=== PATIENT | male | born 1960 | race Caucasian/White ===

== ENCOUNTER 2018-11-01 20:45 | Inpatient (IN) | payer OTHER ==
[2018-11-02 00:39] LABS: Basophils # (A) 0.1 k/uL (0-0.2); Basophils % (A) 0 %; Eosinophils # (A) 0.3 k/uL (0-0.7); Eosinophils % (A) 1 %; Lymphocytes # (A) 1.6 k/uL (1.0-4.8); Lymphocytes % (A) 8 %; MCH 29.5 pg (25.0-35.0); MCV 92.2 fL (80.0-100.0); Mean Platelet Volume 7.1; Monocytes # (A) 1.1 k/uL (0-1.0); Monocytes % (A) 5 %; Neutrophils # (A) 16.6 k/uL (1.3-7.7); Neutrophils % (A) 84 %; Platelet Count 330 k/uL (150-450); RBC 5.43 m/uL (4.30-5.90); RDW 13.2 % (11.5-15.5); WBC 19.9 k/uL (3.8-10.6)
[2018-11-02 00:47] LABS: Amorphous Sediment,Urine Rare /hpf; Appearance,Urine Cloudy (Clear); Bilirubin,Urine Negative (Negative); Blood,Urine Negative (Negative); Color,Urine Yellow; Glucose,Urine (UA) Trace (Negative); Ketones,Urine Negative (Negative); Leukocyte Esterase,Urine Negative (Negative); Nitrite,Urine Negative (Negative); Protein,Urine Trace (Negative); Urobilinogen,Urine <2.0 mg/dL (<2.0)
[2018-11-02 00:53] LABS: ALT 45 U/L (21-72); AST 37 U/L (17-59); Albumin 4.7 g/dL (3.5-5.0); Alkaline Phosphatase 52 U/L (38-126); Amylase 74 U/L (30-110); Anion Gap 11 mmol/L; Blood Urea Nitrogen 21 mg/dL (9-20); Calcium 10.2 mg/dL (8.4-10.2); Carbon Dioxide 25 mmol/L (22-30); Chloride 107 mmol/L (98-107); Glucose 124 mg/dL (74-99); Lipase 118 U/L (23-300); Potassium 4.5 mmol/L (3.5-5.1); Sodium 143 mmol/L (137-145); Total Bilirubin 0.6 mg/dL (0.2-1.3)
--- NOTE | 2018-11-02 01:04 | XR ---
EXAMINATION TYPE: XR KUB DATE OF EXAM: 11/02/2018 COMPARISON: NONE HISTORY: Cramping abdominal pain TECHNIQUE: 2 views upright FINDINGS: There is no sign of intestinal obstruction or pneumoperitoneum. Fecal pattern is normal. Th ere is no sign of a mass. Lung bases are clear. There are no pathologic calcifications over the kidne ys. Bony structures are intact. There is no evidence of a mass. IMPRESSION: Nonacute abdomen.
[2018-11-02] MEDS ORDERED: SODIUM CHLORIDE 0.9% 1,000 ML IV ONE (01:07)
--- NOTE | 2018-11-02 01:10 | ED ---
Abdominal Pain HPI - General Chief Complaint: Abdominal Pain Stated Complaint: Abd pain, and dental issues Time Seen by Provider: 11/02/18 00:24 Source: patient Mode of arrival: ambulatory Limitations: no limitations - History of Present Illness Initial Comments: Weight is a 57-year-old male who presents the emergency department today for evaluation of abdominal pain. Patient reports that around 5 PM he developed abdominal pain in the periumbilical region. He reports that throughout the evening the pain has spread throughout his entire abdomen is associated with nausea and anorexia. No diarrhea or constipation. Patient reports he has a history of ulcers and has had bleeding in the past which , he still is his gallbladder and appendix. Patient reports pain is a dull cramping with occasional episodes of severe stabbing pain. In addition patient also notes that he cracked his left incisor on October 01, he has follow-up with dentistry scheduled for November 08 however he has developed a small dental abscess surrounding this tooth MD Complaint: abdominal pain - Related Data Home Medications Medication Instructions Recorded Confirmed No Known Home Medications 07/08/16 07/08/16 Allergies Allergy/AdvReac Type Severity Reaction Status Date / Time Penicillins Allergy Rash/Hives Verified 11/01/18 21:02 Review of Systems ROS Statement: Those systems with pertinent positive or pertinent negative responses have been documented in the HPI. ROS Other: All systems not noted in ROS Statement are negative. Past Medical History Past Medical History: GERD/Reflux History of Any Multi-Drug Resistant Organisms: None Reported Past Surgical History: Orthopedic Surgery Past Psychological History: No Psychological Hx Reported Smoking Status: Former smoker Past Alcohol Use History: Occasional Past Drug Use History: None Reported General Exam - General Exam Comments Initial Comments: Physical Exam GENERAL: Patient is well-developed and well-nourished. Flushed skin, febrile HENT: Normocephalic, Atraumatic. EYES: PERRL, EOMI PULMONARY: Unlabored respirations. No audible rales rhonchi or wheezing was noted. CARDIOVASCULAR: There is a regular rate and rhythm without any murmurs gallops or rubs. ABDOMEN: Soft, diffuse tenderness, non-peritoneal SKIN: Flushed, moist : Deferred NEUROLOGIC: Patient is alert and oriented x3. Moving all extremities spontaneously MUSCULOSKELETAL: Normal extremities with adequate strength and full range of motion. No lower extremity swelling or edema. No calf tenderness. PSYCHIATRIC: Normal psychiatric evaluation. Limitations: no limitations Limitations: no limitations Course Vital Signs 11/01/18 11/02/18 21:00 00:27 Temperature 98.6 F 98.7 F Pulse Rate 89 103 H Respiratory 20 16 Rate Blood Pressure 127/90 O2 Sat by Pulse 98 97 Oximetry Medical Decision Making - Medical Decision Making Patient was seen and evaluated history is obtained from the patient Labs and imaging were ordered Labs reveal severe leukocytosis with neutrophilia CT of the abdomen was ordered CT of the abdomen reveals some small bowel inflammation with free air in the mesentery surrounding the jejunum. These results were discussed with the radiologist Dr. Leslie. Results were discussed with the patient, I again offered the patient IV narcotics for pain management, he declined stating that as long as no one touches his stomach or moves him he has not been too bad of pain Patient care was discussed with surgeon drill press operator numerical control Dr. Mondragon, she recommends antibiotics, IV fluid resuscitation, nothing by mouth status and admission to medicine Patient care was discussed with Dr. Foster who accepts the admission with a consult to surgery next Considering the patient's ALLERGY to penicillin Levaquin and Flagyl were ordered for coverage of intra-abdominal pathogens. - Lab Data Result diagrams: 11/02/18 00:31 11/02/18 00:31 Lab Results 11/02/18 11/02/18 11/02/18 Range/Units 00:31 00:31 00:31 WBC 19.9 H (3.8-10.6) k/uL RBC 5.43 (4.30-5.90) m/uL Hgb 16.0 (13.0-17.5) gm/dL Hct 50.0 (39.0-53.0) % MCV 92.2 (80.0-100.0) fL MCH 29.5 (25.0-35.0) pg MCHC 32.0 (31.0-37.0) g/dL RDW 13.2 (11.5-15.5) % Plt Count 330 (150-450) k/uL Neutrophils % 84 % Lymphocytes % 8 % Monocytes % 5 % Eosinophils % 1 % Basophils % 0 % Neutrophils # 16.6 H (1.3-7.7) k/uL Lymphocytes # 1.6 (1.0-4.8) k/uL Monocytes # 1.1 H (0-1.0) k/uL Eosinophils # 0.3 (0-0.7) k/uL Basophils # 0.1 (0-0.2) k/uL Sodium 143 (137-145) mmol/L Potassium 4.5 (3.5-5.1) mmol/L Chloride 107 (98-107) mmol/L Carbon Dioxide 25 (22-30) mmol/L Anion Gap 11 mmol/L BUN 21 H (9-20) mg/dL Creatinine 0.87 (0.66-1.25) mg/dL Est GFR (CKD-EPI)AfAm >90 (>60 ml/min/1.73 sqM) Est GFR (CKD-EPI)NonAf >90 (>60 ml/min/1.73 sqM) Glucose 124 H (74-99) mg/dL Calcium 10.2 (8.4-10.2) mg/dL Total Bilirubin 0.6 (0.2-1.3) mg/dL AST 37 (17-59) U/L ALT 45 (21-72) U/L Alkaline Phosphatase 52 (38-126) U/L Total Protein 8.0 (6.3-8.2) g/dL Albumin 4.7 (3.5-5.0) g/dL Amylase 74 (30-110) U/L Lipase 118 (23-300) U/L Urine Color Yellow Urine Appearance Cloudy (Clear) Urine pH 8.0 (5.0-8.0) Ur Specific [place] 1.020 (1.001-1.035) Urine Protein Trace H (Negative) Urine Glucose (UA) Trace H (Negative) Urine Ketones Negative (Negative) Urine Blood Negative (Negative) Urine Nitrite Negative (Negative) Urine Bilirubin Negative (Negative) Urine Urobilinogen <2.0 (<2.0) mg/dL Ur Leukocyte Esterase Negative (Negative) Amorphous Sediment Rare H (None) /hpf Disposition Clinical Impression: Small bowel perforation Disposition: ADMITTED IP TO THIS HOSP Is patient prescribed a controlled substance at d/c from ED?: No Referrals: Marisol Carbone DO [Primary Care Provider] - 1-2 days
[2018-11-02] MEDS ORDERED: LEVOFLOXACIN 500MG-D5W PMX 500 MG in DEXTROSE/WATER 1 100ML.BAG IVPB STA (01:51)
[2018-11-02] MEDS ORDERED: metroNIDAZOLE-NS PMX 500 MG in SALINE 1 100ML.BAG IVPB STA (01:51)
--- NOTE | 2018-11-02 01:52 | CT ---
EXAMINATION TYPE: CT abdomen pelvis w con DATE OF EXAM: 11/02/2018 COMPARISON: None HISTORY: Abd pain CT DLP: 787.20 mGycm Automated exposure control for dose reduction was used. TECHNIQUE: Helical acquisition of images was performed from the lung bases through the pelvis. CONTRAST: Performed without Oral Contrast and with IV Contrast, patient injected with 100 mL of Isovue 300. FINDINGS: There is mild subsegmental atelectasis at the lung bases. There is small hiatal hernia. Heart size is normal. There is no pericardial effusion. Liver spleen pancreas gallbladder appear normal. Bile duct s are not dilated. There is no adrenal mass. Kidneys show satisfactory contrast opacification. There is 2 mm calculus lateral left kidney. There is 1 cm cortical cyst posterior right kidney. There is no hydronephrosis. The ureters are not dilated. There is no retroperitoneal adenopathy. Bladder distends smoothly. There is no inguinal hernia. Appendix is not definitely seen. There is no sign of appendicitis. There is a 6 x 3 cm irregular collection of air in the small bowel mesentery on the left side best se en on coronal image 35. There is also small air bubbles in the anterior peritoneal cavity. There is m ild thickening of the jejunum wall. There is some tethering of small bowel loops at the area of the m esenteric air. There is mild small bowel mesenteric edema at the area of free air. There is large 1.5 cm diverticulum of the proximal sigmoid colon. I see no sign of diverticulitis. There is tiny amount of free fluid in the pelvis. IMPRESSION: THERE IS PNEUMOPERITONEUM AND SOME FREE AIR ALSO IN THE SMALL BOWEL MESENTERY. THERE IS MILD JEJUNAL WALL THICKENING. THIS COULD RELATE TO PERFORATED ENTERITIS. APPENDIX NOT SEEN. NO EVIDENCE OF APPENDICITIS. This exam was discussed with the ER physician at 1:50 AM.
[2018-11-02] MEDS ORDERED: NALOXONE 0.4 MG/ML 1 ML VIAL IV PRN (01:55)
[2018-11-02] MEDS ORDERED: ONDANSETRON 4 MG/2 ML VIAL IVP PRN (01:55)
[2018-11-02] MEDS: MORPHINE SULFATE 4 MG/ML SYRINGE IV PRN ×5 (04:00→23:08)
[2018-11-02 07:46] VITALS: BMI 26.6
--- NOTE | 2018-11-02 12:04 | P.HPIM ---
History of Present Illness H&P Date: 11/02/18 Chief Complaint: Abdominal pain This is a 57-year-old male, patient of Dr. Carbone. He has a known past medical history of GERD and bleeding stomach ulcers over 20 years ago that required cauterization. Patient also has a cracked left incisor that has developed a small dental abscess. He is scheduled to see his dentist on November 08. He was currently not on any antibiotics for the tooth. Patient reports around 5:00 yesterday afternoon he started having severe sharp abdominal pains across the center of the abdomen. I'll pain continued to worsen. And he came into the emergency room for further evaluation and treatment. White count elevated at 19.9. Computed tomography scan of the abdomen and pelvis shows there is no pneumoperitoneum and some free air in the small bowel mesentery. There is a mild jejunal wall thickening. This could relate to a perforated enteritis. No evidence of appendicitis. Surgical service has been placed on consult. Patient started on Levaquin and Flagyl in the ER. Also is receiving morphine for pain control. Patient reports that he is been having regular bowel movements. No diarrhea or constipation. Denies any nausea or vomiting. He does admit to having some chills and sweats. But no fever reported. Denies any burning with urination. Denies any chest pain or shortness of breath. Last colonoscopy was over 2 years ago. Review of Systems Please refer to HPI otherwise unremarkable Past Medical History Past Medical History: GERD/Reflux Additional Past Medical History / Comment(s): gastric ulcers History of Any Multi-Drug Resistant Organisms: None Reported Past Surgical History: Orthopedic Surgery Past Psychological History: No Psychological Hx Reported Smoking Status: Former smoker Past Alcohol Use History: Occasional Past Drug Use History: None Reported - Past Family History Mother Family Medical History: Diabetes Mellitus Sister(s) Family Medical History: Diabetes Mellitus Medications and Allergies Home Medications Medication Instructions Recorded Confirmed Type Multivitamins, Thera [Multivitamin 1 tab PO DAILY 11/02/18 11/02/18 History (formulary)] Allergies Allergy/AdvReac Type Severity Reaction Status Date / Time Penicillins Allergy Rash/Hives Verified 11/02/18 08:04 Physical Exam Vitals: Vital Signs Temp Pulse Pulse Resp BP BP Pulse Ox 11/02/18 07:34 98.4 F 99 18 107/74 95 11/02/18 07:29 98.1 F 96 18 107/74 94 L 11/02/18 07:03 98.6 F 11/02/18 03:00 96 16 117/73 95 11/02/18 02:25 98.6 F 96 15 117/71 96 11/02/18 00:27 98.7 F 103 H 16 97 11/01/18 21:00 98.6 F 89 20 127/90 98 Intake and Output 11/01/18 11/02/18 11/02/18 22:59 06:59 14:59 Other: Weight 79.379 kg 79.379 kg Head normocephalic Neck supple Lungs clear to auscultation bilaterally no wheezing or crackles Heart regular rate and rhythm S1-S2, no rub or gallop Abdomen is distended diffuse abdominal tenderness. Hypoactive bowel sounds Extremities no edema Neuro alert and orientated to 3 Results CBC & Chem 7: 11/02/18 00:31 11/02/18 00:31 Labs: Abnormal Lab Results - Last 24 Hours (Table) 11/02/18 11/02/18 11/02/18 Range/Units 00:31 00:31 00:31 WBC 19.9 H (3.8-10.6) k/uL Neutrophils # 16.6 H (1.3-7.7) k/uL Monocytes # 1.1 H (0-1.0) k/uL BUN 21 H (9-20) mg/dL Glucose 124 H (74-99) mg/dL Urine Protein Trace H (Negative) Urine Glucose (UA) Trace H (Negative) Amorphous Sediment Rare H (None) /hpf Assessment and Plan Assessment: 1. Abdominal pain with computed tomography scan showing pneumoperitoneum and free air in the small bowel mesentery. Surgical service on consult. awaiting their recommendations. Continue Levaquin, Flagyl IV fluids. Continue morphine as needed for pain control. Patient is currently nothing by mouth. 2. Left incisor dental abscess: Continue his current antibiotics. Patient scheduled to follow-up with dentist next week on November 08 3. History of GERD 4. History of bleeding peptic ulcers requiring cauterization about 20 years GI prophylaxis Protonix and DVT prophylaxis SCDs Time with Patient: Greater than 30 (Greater than 50% of the total time spent in counseling and coordination of care.I performed an examination of the patient and discussed their management with the physician Fire Pot Operator. I have reviewed the Physician Fire Pot Operator's notes and agree with the documented findings and plan of care)
[2018-11-02] MEDS ORDERED: SODIUM CHLORIDE 0.9% 2,000 ML IV ONE (12:29)
--- NOTE | 2018-11-02 12:29 | P.GSCN ---
History of Present Illness Consult date: 11/02/18 History of present illness: Patient seen and evaluated. Will repeat XR as patient reports feeling better. ADDENDUM: Repeat abdominal x-ray now confirms free air, we'll proceed with exploratory laparotomy possible bowel resection and possible ostomy Past Medical History Past Medical History: GERD/Reflux Additional Past Medical History / Comment(s): gastric ulcers History of Any Multi-Drug Resistant Organisms: None Reported Past Surgical History: Orthopedic Surgery Past Psychological History: No Psychological Hx Reported Smoking Status: Former smoker Past Alcohol Use History: Occasional Past Drug Use History: None Reported - Past Family History Mother Family Medical History: Diabetes Mellitus Sister(s) Family Medical History: Diabetes Mellitus Medications and Allergies Home Medications Medication Instructions Recorded Confirmed Type Multivitamins, Thera [Multivitamin 1 tab PO DAILY 11/02/18 11/02/18 History (formulary)] Allergies Allergy/AdvReac Type Severity Reaction Status Date / Time Penicillins Allergy Rash/Hives Verified 11/02/18 08:04 Surgical - Exam Vital Signs Temp Pulse Resp BP Pulse Ox 98.6 F 89 20 127/90 98 11/01/18 21:00 11/01/18 21:00 11/01/18 21:00 11/01/18 21:00 11/01/18 21:00 Results - Labs 11/02/18 00:31 11/02/18 00:31 Abnormal Lab Results - Last 24 Hours (Table) 11/02/18 11/02/18 11/02/18 Range/Units 00:31 00:31 00:31 WBC 19.9 H (3.8-10.6) k/uL Neutrophils # 16.6 H (1.3-7.7) k/uL Monocytes # 1.1 H (0-1.0) k/uL BUN 21 H (9-20) mg/dL Glucose 124 H (74-99) mg/dL Urine Protein Trace H (Negative) Urine Glucose (UA) Trace H (Negative) Amorphous Sediment Rare H (None) /hpf Diabetes panel 11/02/18 Range/Units 00:31 Sodium 143 (137-145) mmol/L Potassium 4.5 (3.5-5.1) mmol/L Chloride 107 (98-107) mmol/L Carbon Dioxide 25 (22-30) mmol/L BUN 21 H (9-20) mg/dL Creatinine 0.87 (0.66-1.25) mg/dL Glucose 124 H (74-99) mg/dL Calcium 10.2 (8.4-10.2) mg/dL AST 37 (17-59) U/L ALT 45 (21-72) U/L Alkaline Phosphatase 52 (38-126) U/L Total Protein 8.0 (6.3-8.2) g/dL Albumin 4.7 (3.5-5.0) g/dL Calcium panel 11/02/18 Range/Units 00:31 Calcium 10.2 (8.4-10.2) mg/dL Albumin 4.7 (3.5-5.0) g/dL Pituitary panel 11/02/18 Range/Units 00:31 Sodium 143 (137-145) mmol/L Potassium 4.5 (3.5-5.1) mmol/L Chloride 107 (98-107) mmol/L Carbon Dioxide 25 (22-30) mmol/L BUN 21 H (9-20) mg/dL Creatinine 0.87 (0.66-1.25) mg/dL Glucose 124 H (74-99) mg/dL Calcium 10.2 (8.4-10.2) mg/dL Adrenal panel 11/02/18 Range/Units 00:31 Sodium 143 (137-145) mmol/L Potassium 4.5 (3.5-5.1) mmol/L Chloride 107 (98-107) mmol/L Carbon Dioxide 25 (22-30) mmol/L BUN 21 H (9-20) mg/dL Creatinine 0.87 (0.66-1.25) mg/dL Glucose 124 H (74-99) mg/dL Calcium 10.2 (8.4-10.2) mg/dL Total Bilirubin 0.6 (0.2-1.3) mg/dL AST 37 (17-59) U/L ALT 45 (21-72) U/L Alkaline Phosphatase 52 (38-126) U/L Total Protein 8.0 (6.3-8.2) g/dL Albumin 4.7 (3.5-5.0) g/dL
--- NOTE | 2018-11-02 12:54 | XR ---
EXAMINATION TYPE: XR abdomen acute w cxr DATE OF EXAM: 11/02/2018 COMPARISON: 11/02/2008 HISTORY: Pain TECHNIQUE: Supine, upright, and left side down lateral decubitus views of the abdomen are obtained. FINDINGS: Metallic screw overlying the left upper chest. No sizable pneumothorax. Subsegmental consol idation along the bilateral lung bases with tiny effusions. No overt failure. Bowel gas pattern nonspecific. Findings suspicious for a small amount of free air. Arthropathy of the hips noted. Contrast within the bladder noted. IMPRESSION: 1. Findings suspicious for small amount of free intra-abdominal air. 2. Right basilar atelectasis or infiltrate.
[2018-11-02] MEDS: PANTOPRAZOLE 40 MG/10 ML VIAL IVP SCH (13:28)
[2018-11-02] MEDS: metroNIDAZOLE-NS PMX 500 MG in SALINE 1 100ML.BAG IVPB SCH ×2 (15:01→23:09)
--- NOTE | 2018-11-02 15:08 | P.PN ---
Progress Note - Text Progress Note Date: 11/02/18 Patient re-evaluated. Findings of AXR described to and patient. He reports feeling much better since admission including from my initial assessment. Patient was initially described surgery including exploratory laparotomy possible bowel resection and ostomy creation. Patient elected to decline surgery , "I feel so much better." He opted to be observed. He is aware that any decline in his clinical status may warrant surgery in the future.
[2018-11-03] MEDS: LEVOFLOXACIN 500MG-D5W PMX 500 MG in DEXTROSE/WATER 1 100ML.BAG IVPB SCH (07:51)
[2018-11-03] MEDS: PANTOPRAZOLE 40 MG/10 ML VIAL IVP SCH (08:08)
[2018-11-03] MEDS: metroNIDAZOLE-NS PMX 500 MG in SALINE 1 100ML.BAG IVPB SCH ×3 (08:58→23:56)
[2018-11-03] MEDS: ACETAMINOPHEN TAB 325 MG TAB PO PRN ×2 (08:58→21:14)
[2018-11-03] MEDS: IOPAMIDOL-300 CONTRAST 30 ML VIAL (ORAL USE) PO PRN ×2 (09:37→10:31)
[2018-11-03 09:47] LABS: Basophils % (A) 0 %; Eosinophils # (A) 0.1 k/uL (0-0.7); Eosinophils % (A) 1 %; HCT 42.7 % (39.0-53.0); HGB 14.1 gm/dL (13.0-17.5); Lymphocytes # (A) 1.5 k/uL (1.0-4.8); Lymphocytes % (A) 8 %; MCH 30.8 pg (25.0-35.0); MCV 93.3 fL (80.0-100.0); Mean Platelet Volume 7.7; Monocytes # (A) 1.4 k/uL (0-1.0); Monocytes % (A) 8 %; Neutrophils # (A) 14.3 k/uL (1.3-7.7); Neutrophils % (A) 81 %; Platelet Count 226 k/uL (150-450); RBC 4.58 m/uL (4.30-5.90); RDW 13.1 % (11.5-15.5); WBC 17.6 k/uL (3.8-10.6)
[2018-11-03 09:59] LABS: ALT 31 U/L (21-72); AST 19 U/L (17-59); Albumin 3.5 g/dL (3.5-5.0); Alkaline Phosphatase 45 U/L (38-126); Anion Gap 10 mmol/L; Blood Urea Nitrogen 10 mg/dL (9-20); Calcium 9.2 mg/dL (8.4-10.2); Carbon Dioxide 21 mmol/L (22-30); Chloride 104 mmol/L (98-107); Glucose 106 mg/dL (74-99); Potassium 4.1 mmol/L (3.5-5.1); Sodium 135 mmol/L (137-145); Total Bilirubin 1.4 mg/dL (0.2-1.3); Total Protein 6.3 g/dL (6.3-8.2)
--- NOTE | 2018-11-03 12:02 | P.PN ---
Subjective Progress Note Date: 11/03/18 This is a 57-year-old male, patient of Dr. Carbone. He has a known past medical history of GERD and bleeding stomach ulcers over 20 years ago that required cauterization. Patient also has a cracked left incisor that has developed a small dental abscess. He is scheduled to see his dentist on November 08. He was currently not on any antibiotics for the tooth. Patient reports around 5:00 yesterday afternoon he started having severe sharp abdominal pains across the center of the abdomen. I'll pain continued to worsen. And he came into the emergency room for further evaluation and treatment. White count elevated at 19.9. Computed tomography scan of the abdomen and pelvis shows there is no pneumoperitoneum and some free air in the small bowel mesentery. There is a mild jejunal wall thickening. This could relate to a perforated enteritis. No evidence of appendicitis. Surgical service has been placed on consult. Patient started on Levaquin and Flagyl in the ER. Also is receiving morphine for pain control. Patient reports that he is been having regular bowel movements. No diarrhea or constipation. Denies any nausea or vomiting. He does admit to having some chills and sweats. But no fever reported. Denies any burning with urination. Denies any chest pain or shortness of breath. Last colonoscopy was over 2 years ago. 11/03/2018 patient seen by surgical service yesterday. Abdominal x-ray also showing free air. Initially it was planned to have patient undergo an exploratory laparotomy with possible bowel resection and ostomy creation. Per surgical service patient elected to decline surgery stating that "I feel so much better". Patient has not required any pain medication this morning. And is scheduled for a computed tomography scan of the abdomen and pelvis this morning for further evaluation of bowel perforation. Patient's abdomen is still distended. Denies any nausea or vomiting. Does admit to having some chest pressure earlier this morning. EKG and troponin have been ordered. Patient is passing gas no bowel movement. She's been followed closely by surgical service. Patient did have a low-grade temp of 100.5 this morning. Heart rate 107 white count has dropped from 19.9-17.6 Objective - Vital Signs Vital signs: Vital Signs Temp 98.5 F 11/03/18 08:00 Pulse 107 H 01/04/19 05:45 Resp 20 11/03/18 05:45 BP 120/82 11/03/18 05:45 Pulse Ox 94 L 11/03/18 05:45 Intake & Output 11/02/18 11/03/18 11/03/18 18:59 06:59 18:59 Intake Total 0 Balance 0 Weight 79.379 kg Intake: Oral 0 Other: # Voids 1 1 - Exam Head normocephalic Neck supple Lungs clear to auscultation bilaterally no wheezing or crackles Heart regular rate and rhythm S1-S2, no rub or gallop Abdomen is distended hypoactive bowel sounds diffuse tenderness Extremities no edema Neuro alert and orientated to 3 - Labs CBC & Chem 7: 11/03/18 08:51 11/03/18 08:51 Labs: Abnormal Lab Results - Last 24 Hours (Table) 11/03/18 11/03/18 Range/Units 08:51 08:51 WBC 17.6 H (3.8-10.6) k/uL Neutrophils # 14.3 H (1.3-7.7) k/uL Monocytes # 1.4 H (0-1.0) k/uL Sodium 135 L (137-145) mmol/L Carbon Dioxide 21 L (22-30) mmol/L Glucose 106 H (74-99) mg/dL Total Bilirubin 1.4 H (0.2-1.3) mg/dL Assessment and Plan Assessment: 1. Abdominal pain with computed tomography scan showing pneumoperitoneum and free air in the small bowel mesentery. Continue Levaquin and Flagyl. Patient is scheduled for a repeat computed tomography scan of the abdomen and pelvis. We'll await further surgical recommendations. Yesterday patient had declined surgical intervention 2. Left incisor dental abscess: Continue his current antibiotics. Patient scheduled to follow-up with dentist next week on November 08 3. History of GERD 4. History of bleeding peptic ulcers requiring cauterization about 20 years 5. Chest pain: Check EKG. Check troponin GI prophylaxis Protonix and DVT prophylaxis SCDs
--- NOTE | 2018-11-03 13:39 | CT ---
EXAMINATION TYPE: CT abdomen pelvis w con DATE OF EXAM: 11/03/2018 COMPARISON: 11/02/2018 INDICATION: Follow up scan. Improved pain from prior scan DLP: 807.2 mGycm, Automated exposure control for dose reduction was used. CONTRAST: 100 mL of Isovue 300. Study performed with Oral Contrast TECHNIQUE: Axial images were obtained from above the diaphragm to the pubic rami in the axial plane a t 5 mm thick sections. Reconstructed images are reviewed on the computer in the coronal plane. FINDINGS: Limited CT sections are obtained the lung bases. There is mild streak opacity in the posterior later al right lung base may be some atelectasis. Early pneumonia is considered less likely but within the differential. Small hiatal hernia with reflux of contrast is evident.. CT ABDOMEN: Liver: There is moderate fatty infiltration to the liver. No discrete masses or cysts are evident. Spleen: Normal Pancreas: Normal Adrenal glands: The adrenal glands are normal. Gallbladder: Normal Kidneys: No masses are evident. No hydronephrosis is present. There is a 0.9 cm cyst in the posteri or lateral right kidney. There is a 0.4 cm calcification in the mid left kidney without obstruction. Aorta: Vascular calcification is within the aorta. Inferior vena cava: Normal. CT PELVIS: There is dilated jejunum in the left upper quadrant with thickened wall. Within the mesent elysia there is an air collection without obvious abscess formation. Inflammatory changes are adjacent. Perforated bowel at this level should be considered. Findings appear similar to the previous exam. Th is free air appears relatively loculated. A tiny amount of air is identified in the anterior upper ab domen. Series 3 image 20. Contrast extends to the distal colon. No obstruction is evident. Appendix: Normal as visualized. Contrast fills the appendix. Urinary bladder: Normal. Genitourinary structures: Prostate is unremarkable. Tiny amount of calcification is present. Osseous structures: No suspicious lytic or sclerotic lesions. IMPRESSIONS: 1. Acute jejunitis with thickened bowel wall and adjacent free air within the mesentery. Findings ap pear stable from the comparison of 11/02/2018.
[2018-11-03] MEDS ORDERED: SODIUM CHLORIDE 0.9% 1,000 ML IV SCH (14:45)
[2018-11-03 16:31] LABS: Creatine Kinase MB 0.4 ng/mL (0.0-2.4); Troponin I 0.033 ng/mL (0.000-0.034)
--- NOTE | 2018-11-03 18:47 | P.PN ---
Progress Note - Text Progress Note Date: 11/03/18 The patient remains relatively comfortable. He had a repeat CAT scan. Today. The CAT scan shows evidence of inflamed jejunum with a small localized perforation. On exam his vital signs are stable. His abdomen soft. Patient will be observed clinically. If he has any signs of decompensation. He 'll be taken to the OR for exploratory laparotomy.
[2018-11-03] MEDS: SODIUM CHLORIDE 0.9% 1,000 ML IV SCH (21:13)
[2018-11-03 22:37] LABS: Creatine Kinase MB 0.3 ng/mL (0.0-2.4); Troponin I 0.025 ng/mL (0.000-0.034)
[2018-11-04] MEDS: SODIUM CHLORIDE 0.9% 1,000 ML IV SCH ×3 (03:49→20:17)
[2018-11-04] MEDS: LEVOFLOXACIN 500MG-D5W PMX 500 MG in DEXTROSE/WATER 1 100ML.BAG IVPB SCH (06:37)
[2018-11-04] MEDS: PANTOPRAZOLE 40 MG/10 ML VIAL IVP SCH (09:02)
[2018-11-04] MEDS: ACETAMINOPHEN TAB 325 MG TAB PO PRN (09:07)
[2018-11-04] MEDS: IOPAMIDOL-300 CONTRAST 30 ML VIAL (ORAL USE) PO PRN ×2 (09:56→11:13)
[2018-11-04] MEDS: metroNIDAZOLE-NS PMX 500 MG in SALINE 1 100ML.BAG IVPB SCH ×2 (09:56→16:18)
--- NOTE | 2018-11-04 10:45 | P.PN ---
Subjective Progress Note Date: 11/04/18 This is a 57-year-old male, patient of Dr. Carbone. He has a known past medical history of GERD and bleeding stomach ulcers over 20 years ago that required cauterization. Patient also has a cracked left incisor that has developed a small dental abscess. He is scheduled to see his dentist on November 08. He was currently not on any antibiotics for the tooth. Patient reports around 5:00 yesterday afternoon he started having severe sharp abdominal pains across the center of the abdomen. I'll pain continued to worsen. And he came into the emergency room for further evaluation and treatment. White count elevated at 19.9. Computed tomography scan of the abdomen and pelvis shows there is no pneumoperitoneum and some free air in the small bowel mesentery. There is a mild jejunal wall thickening. This could relate to a perforated enteritis. No evidence of appendicitis. Surgical service has been placed on consult. Patient started on Levaquin and Flagyl in the ER. Also is receiving morphine for pain control. Patient reports that he is been having regular bowel movements. No diarrhea or constipation. Denies any nausea or vomiting. He does admit to having some chills and sweats. But no fever reported. Denies any burning with urination. Denies any chest pain or shortness of breath. Last colonoscopy was over 2 years ago. 11/03/2018 patient seen by surgical service yesterday. Abdominal x-ray also showing free air. Initially it was planned to have patient undergo an exploratory laparotomy with possible bowel resection and ostomy creation. Per surgical service patient elected to decline surgery stating that "I feel so much better". Patient has not required any pain medication this morning. And is scheduled for a computed tomography scan of the abdomen and pelvis this morning for further evaluation of bowel perforation. Patient's abdomen is still distended. Denies any nausea or vomiting. Does admit to having some chest pressure earlier this morning. EKG and troponin have been ordered. Patient is passing gas no bowel movement. She's been followed closely by surgical service. Patient did have a low-grade temp of 100.5 this morning. Heart rate 107 white count has dropped from 19.9-17.6 On 11/04/2018 patient is alert and oriented 3 in no apparent distress he is feeling better he reports less abdominal pain he is still having some abdominal discomfort there is no nausea or vomiting no diarrhea no bowel movement patient is passing gas, there is no fever or chills no headache or dizziness no chest pain no shortness of breath no cough and no urinary symptoms. Patient was seen by surgery again this morning he is scheduled for computed tomography scan of the abdomen and pelvis at noon today for further evaluation. Objective - Vital Signs Vital signs: Vital Signs Temp 97.5 F L 11/04/18 05:46 Pulse 81 11/04/18 05:46 Resp 14 11/04/18 05:46 BP 102/68 11/04/18 05:46 Pulse Ox 95 11/04/18 05:46 Intake & Output 11/03/18 11/04/18 11/04/18 18:59 06:59 18:59 Other: # Voids 3 2 - Exam Head normocephalic and atraumatic Neck supple no JVD no goiter Lungs clear to auscultation bilaterally no wheezing or crackles Heart regular rate and rhythm S1-S2, no rub or gallop Abdomen is distended hypoactive bowel sounds with diffuse tenderness no rigidity or rebound no palpable masses or organomegaly Extremities no edema no cyanosis or clubbing Neuro alert and orientated to 3 - Labs CBC & Chem 7: 11/03/18 08:51 11/03/18 08:51 Labs: Abnormal Lab Results - Last 24 Hours (Table) 11/03/18 Range/Units 08:51 Troponin I 0.060 H* (0.000-0.034) ng/mL Assessment and Plan Plan: 1. Abdominal pain with computed tomography scan showing pneumoperitoneum and free air in the small bowel mesentery. Continue Levaquin and Flagyl. Patient is scheduled for a repeat computed tomography scan of the abdomen and pelvis. We'll await further surgical recommendations. Patient is schedueled for repeat CT scan of the abdomen today 2. Left incisor dental abscess: Continue his current antibiotics. Patient scheduled to follow-up with dentist next week on November 08 3. History of GERD 4. History of bleeding peptic ulcers requiring cauterization about 20 years 5. Chest pain: Check EKG. troponin slightly elevated, cardiology following GI prophylaxis Protonix and DVT prophylaxis SCDs
--- NOTE | 2018-11-04 12:28 | CT ---
EXAMINATION TYPE: CT abdomen pelvis wo con DATE OF EXAM: 11/04/2018 COMPARISON: Previous study dated 11/03/2018. HISTORY: Left sided abdominal pain, improving CT DLP: 445.8 mGycm Automated exposure control for dose reduction was used. FINDINGS: There is minimal atelectasis at the right lung base. There is no pleural or pericardial flu id. The heart is not enlarged. Within the abdomen, there is contrast within the gallbladder from a previous contrast CT. The liver a nd spleen appear normal. Both adrenal glands appear normal. There are 2, 3 to 4 mm calculi involving the left kidney. The smaller is in the upper pole calyx and the larger in the anterior middle pole calyx. There is no evidence of hydronephrosis. No definite rig ht-sided calculi are seen. Limited views of the pancreas are unremarkable. There continues to be bowel wall thickening and adjacent free air in the proximal jejunum. This is es sentially unchanged from previous. There is also mild thickening of the distal ileum. The appendix is not visualized with certainty. No free fluid is seen. There is mild hypertrophic spondylosis within the lumbar spine. The bladder is unremarkable. There is no evidence of diverticular change and there is no radiographic evidence of diverticulitis. IMPRESSION: 1. NO SIGNIFICANT INTERVAL CHANGE IN THE APPEARANCE OF THE PROXIMAL JEJUNUM IN THE AMOUNT OF FREE AIR . 2. THICKENING IN THE DISTAL ILEUM RAISES A POSSIBILITY OF CROHN'S DISEASE. 3. NONOBSTRUCTING LEFT-SIDED NEPHROLITHIASIS.
--- NOTE | 2018-11-04 12:50 | P.PN ---
Progress Note - Text Progress Note Date: 11/04/18 The patient states he feels better today. On exam his vital signs are stable. His evidence soft. Computed tomography scan of the abdomen was performed. There is been no real change in his jejunal inflammation. Patient was placed on clear liquid diet. He may be discharged home tomorrow if he continues to improve.
[2018-11-04 13:14] LABS: Basophils % (A) 0 %; Eosinophils # (A) 0.4 k/uL (0-0.7); Eosinophils % (A) 3 %; HCT 42.2 % (39.0-53.0); HGB 13.6 gm/dL (13.0-17.5); Lymphocytes # (A) 1.5 k/uL (1.0-4.8); Lymphocytes % (A) 13 %; MCH 30.3 pg (25.0-35.0); MCHC 32.2 g/dL (31.0-37.0); MCV 94.1 fL (80.0-100.0); Mean Platelet Volume 7.6; Monocytes # (A) 0.9 k/uL (0-1.0); Monocytes % (A) 8 %; Neutrophils # (A) 8.3 k/uL (1.3-7.7); Neutrophils % (A) 73 %; Platelet Count 233 k/uL (150-450); RBC 4.49 m/uL (4.30-5.90); WBC 11.4 k/uL (3.8-10.6)
[2018-11-04 13:24] LABS: ALT 29 U/L (21-72); AST 15 U/L (17-59); Albumin 3.4 g/dL (3.5-5.0); Alkaline Phosphatase 45 U/L (38-126); Anion Gap 9 mmol/L; Blood Urea Nitrogen 14 mg/dL (9-20); Calcium 8.9 mg/dL (8.4-10.2); Carbon Dioxide 22 mmol/L (22-30); Chloride 106 mmol/L (98-107); Glucose 115 mg/dL (74-99); Potassium 4.1 mmol/L (3.5-5.1); Sodium 137 mmol/L (137-145); Total Bilirubin 0.7 mg/dL (0.2-1.3); Total Protein 6.2 g/dL (6.3-8.2)
[2018-11-05] MEDS: metroNIDAZOLE-NS PMX 500 MG in SALINE 1 100ML.BAG IVPB SCH ×2 (00:09→09:11)
[2018-11-05] MEDS: SODIUM CHLORIDE 0.9% 1,000 ML IV SCH ×2 (03:42→12:52)
[2018-11-05] MEDS: LEVOFLOXACIN 500MG-D5W PMX 500 MG in DEXTROSE/WATER 1 100ML.BAG IVPB SCH (06:18)
[2018-11-05 06:29] VITALS: BP 120/74; PULSE 70; RESP 18; TEMP 97.5
[2018-11-05] MEDS: PANTOPRAZOLE 40 MG/10 ML VIAL IVP SCH (09:10)
--- NOTE | 2018-11-05 13:02 | P.DS ---
Providers Date of admission: 11/02/18 01:55 Expected date of discharge: 11/05/18 Attending physician: Kait Foster Consults: 11/02/18 01:55 Consult Physician Stat Consulting Provider: Nicole Veliz Consult Reason/Comments: free air in abdomen Do you want consulting provider notified?: Already Contacted 11/03/18 14:43 Consult Physician Routine Consulting Provider: Kristofer Pham Consult Reason/Comments: chest pain, elevated troponin Do you want consulting provider notified?: Yes Primary care physician: Marisol Carbone Hospital Course: Diagnosis on discharge: 1. Abdominal pain with computed tomography scan showing pneumoperitoneum and free air in the small bowel mesentery. 2. Left incisor dental abscess: Continue his current antibiotics. Patient scheduled to follow-up with dentist next week on November 08 3. History of GERD 4. History of bleeding peptic ulcers requiring cauterization about 20 years 5. Chest pain: Check EKG. troponin slightly elevated, cardiology following, no intervention recommended at this point. Hospital course: This is a 57-year-old male, patient of Dr. Carbone. He has a known past medical history of GERD and bleeding stomach ulcers over 20 years ago that required cauterization. Patient also has a cracked left incisor that has developed a small dental abscess. He is scheduled to see his dentist on November 08. He was currently not on any antibiotics for the tooth. Patient reports around 5:00 yesterday afternoon he started having severe sharp abdominal pains across the center of the abdomen. I'll pain continued to worsen. And he came into the emergency room for further evaluation and treatment. White count elevated at 19.9. Computed tomography scan of the abdomen and pelvis shows there is no pneumoperitoneum and some free air in the small bowel mesentery. There is a mild jejunal wall thickening. This could relate to a perforated enteritis. No evidence of appendicitis. Surgical service has been placed on consult. Patient started on Levaquin and Flagyl in the ER. Also is receiving morphine for pain control. Patient reports that he is been having regular bowel movements. No diarrhea or constipation. Denies any nausea or vomiting. He does admit to having some chills and sweats. But no fever reported. Denies any burning with urination. Denies any chest pain or shortness of breath. Last colonoscopy was over 2 years ago. 11/03/2018 patient seen by surgical service yesterday. Abdominal x-ray also showing free air. Initially it was planned to have patient undergo an exploratory laparotomy with possible bowel resection and ostomy creation. Per surgical service patient elected to decline surgery stating that "I feel so much better". Patient has not required any pain medication this morning. And is scheduled for a computed tomography scan of the abdomen and pelvis this morning for further evaluation of bowel perforation. Patient's abdomen is still distended. Denies any nausea or vomiting. Does admit to having some chest pressure earlier this morning. EKG and troponin have been ordered. Patient is passing gas no bowel movement. She's been followed closely by surgical service. Patient did have a low-grade temp of 100.5 this morning. Heart rate 107 white count has dropped from 19.9-17.6 On 11/04/2018 patient is alert and oriented 3 in no apparent distress he is feeling better he reports less abdominal pain he is still having some abdominal discomfort there is no nausea or vomiting no diarrhea no bowel movement patient is passing gas, there is no fever or chills no headache or dizziness no chest pain no shortness of breath no cough and no urinary symptoms. Patient was seen by surgery again this morning he is scheduled for computed tomography scan of the abdomen and pelvis at noon today for further evaluation. On 11/05/2018 patient is alert and oriented 3 in no apparent distress abdominal pain has significantly improved there is no nausea or vomiting no diarrhea no blood in the stools patient is feeling well and hoping to be discharged he was seen by Dr. Luu and was cleared for discharge. Patient is currently maintained on IV Levaquin and IV Flagyl he was switched to oral Levaquin 500 mg daily for 7 days and oral Flagyl 500 mg 3 times daily for 7 days , he will follow-up with Dr. Luu in 2 days, he will also follow-up with his primary care physician in one week. Patient was instructed to come back to the hospital immediately having worsening abdominal pain or having any nausea or vomiting or having any fever or chills or having any diarrhea or blood in the stools. Plan - Discharge Summary New Discharge Prescriptions: New Levofloxacin [Levaquin] 500 mg PO DAILY 7 Days #7 tab metroNIDAZOLE [Flagyl] 500 mg PO TID 7 Days #21 tab Continue Multivitamins, Thera [Multivitamin (formulary)] 1 tab PO DAILY Discharge Medication List Multivitamins, Thera [Multivitamin (formulary)] 1 tab PO DAILY 11/02/18 [History ] Levofloxacin [Levaquin] 500 mg PO DAILY 7 Days #7 tab 11/05/18 [Rx] metroNIDAZOLE [Flagyl] 500 mg PO TID 7 Days #21 tab 11/05/18 [Rx] Follow up Appointment(s)/Referral(s): Marisol Carbone DO [Primary Care Provider] - 1-2 days Jeanna Macias MD [STAFF PHYSICIAN] - 1 Week Oscar Dong MD [STAFF PHYSICIAN] - 11/07/18 2:30 pm Activity/Diet/Wound Care/Special Instructions: activity as tolerated continue full liquid diet until seen by Dr. Dong.
--- NOTE | 2018-11-05 13:03 | P.PN ---
Progress Note - Text Progress Note Date: 11/05/18 The patient is completely asymptomatic today. He states he has no abdominal pain. On exam his vital signs are stable. His abdomen is soft. There is no significant tenderness. Patiently discharged home today. He'll follow-up next week.
[2018-11-05 13:29] LABS: Basophils % (A) 0 %; Eosinophils # (A) 0.3 k/uL (0-0.7); Eosinophils % (A) 3 %; HGB 13.5 gm/dL (13.0-17.5); Lymphocytes # (A) 1.4 k/uL (1.0-4.8); Lymphocytes % (A) 17 %; MCH 30.2 pg (25.0-35.0); MCHC 32.1 g/dL (31.0-37.0); MCV 94.2 fL (80.0-100.0); Mean Platelet Volume 7.2; Monocytes # (A) 0.7 k/uL (0-1.0); Monocytes % (A) 8 %; Neutrophils # (A) 5.8 k/uL (1.3-7.7); Neutrophils % (A) 69 %; Platelet Count 295 k/uL (150-450); RBC 4.46 m/uL (4.30-5.90); WBC 8.4 k/uL (3.8-10.6)
[2018-11-05 13:37] LABS: ALT 24 U/L (21-72); AST 18 U/L (17-59); Albumin 3.3 g/dL (3.5-5.0); Alkaline Phosphatase 40 U/L (38-126); Anion Gap 7 mmol/L; Blood Urea Nitrogen 12 mg/dL (9-20); Calcium 9.3 mg/dL (8.4-10.2); Carbon Dioxide 25 mmol/L (22-30); Chloride 107 mmol/L (98-107); Glucose 101 mg/dL (74-99); Potassium 4.2 mmol/L (3.5-5.1); Sodium 139 mmol/L (137-145); Total Bilirubin 0.5 mg/dL (0.2-1.3); Total Protein 6.1 g/dL (6.3-8.2)
--- NOTE | 2018-11-05 17:13 | ECHOF ---
Referral Reason:abnormal trop MEASUREMENTS -------- HEIGHT: 172.7 cm WEIGHT: 79.4 kg BP: 108/71 RVIDd: 3.0 cm (< 3.3) IVSd: 1.2 cm (0.6 - 1.1) LVIDd: 4.7 cm (3.9 - 5.3) LVPWd: 1.2 cm (0.6 - 1.1) IVSs: 1.6 cm LVIDs: 3.1 cm LVPWs: 1.8 cm LA Diam: 3.5 cm (2.7 - 3.8) LAESV Index (A-L): 19.19 ml/m Ao Diam: 3.1 cm (2.0 - 3.7) AV Cusp: 2.5 cm (1.5 - 2.6) MV EXCURSION: 24.295 mm (> 18.000) MV EF SLOPE: 136 mm/s (70 - 150) EPSS: 0.8 cm MV E Nickolas: 0.77 m/s MV DecT: 211 ms MV A Nickolas: 0.62 m/s MV E/A Ratio: 1.23 RAP: 15.00 mmHg RVSP: 33.14 mmHg FINDINGS -------- Sinus rhythm. This was a technically good study. The left ventricular size is normal. There is borderline concentric left ventricular hypertrophy. Overall left ventricular systolic function is normal with, an EF between 55 - 60 %. The right ventricle is normal in size. Normal LA size by volume 22+/-6 ml/m2. The right atrium is normal in size. The aortic valve is trileaflet and appears structurally normal. The mitral valve leaflets are mildly thickened. There is trace to mild mitral regurgitation. Mild tricuspid regurgitation present. There is borderline pulmonary hypertension. The right ventr icular systolic pressure, as measured by Doppler, is 33.14mmHg. Trace/mild (physiologic) pulmonic regurgitation. The aortic root size is normal. Normal inferior vena cava with less than 50% inspiratory collapse consistent with estimated right atr ial pressure of 15 mmHg. There is no pericardial effusion. CONCLUSIONS -------- 1. Sinus rhythm. 2. This was a technically good study. 3. The left ventricular size is normal. 4. There is borderline concentric left ventricular hypertrophy. 5. Overall left ventricular systolic function is normal with, an EF between 55 - 60 %. 6. The right ventricle is normal in size. 7. Normal LA size by volume 22+/-6 ml/m2. 8. The right atrium is normal in size. 9. The aortic valve is trileaflet and appears structurally normal. 10. The mitral valve leaflets are mildly thickened. 11. There is trace to mild mitral regurgitation. 12. Mild tricuspid regurgitation present. 13. There is borderline pulmonary hypertension. 14. The right ventricular systolic pressure, as measured by Doppler, is 33.14mmHg. 15. Trace/mild (physiologic) pulmonic regurgitation. 16. The aortic root size is normal. 17. Normal inferior vena cava with less than 50% inspiratory collapse consistent with estimated right atrial pressure of 15 mmHg. 18. There is no pericardial effusion. RASPER MACHINE OPERATOR: Elodia Madrigal RDCS
== END 2018-11-05 13:23 | disposition home or self-care (01) | DRG 391 ==
LOC: EC 20:45 → 4SSUR 11-02 01:55 → 4MS4W 11-02 13:21
PROVIDERS: ADMIT Internal Medicine; ATTEND Internal Medicine
DX: K52.89 Other specified noninfective gastroenteritis and colitis (principal); K63.1 Perforation of intestine (nontraumatic); K04.7 Periapical abscess without sinus; K21.9 Gastro-esophageal reflux disease without esophagitis; Z83.3 Family history of diabetes mellitus; Z87.11 Personal history of peptic ulcer disease; Z87.891 Personal history of nicotine dependence; Z88.0 Allergy status to penicillin; R07.9 Chest pain, unspecified
CPT/HCPCS: 36415; 74018; 74022; 74176; 74177; 80053; 81001; 82150; 82550; 82553; 83690; 84484; 85025; 93005; 93306; 96361; 96365; 96366; 96367; 96375; 96376; 99285

== ENCOUNTER 2024-03-24 10:53 | Emergency (ER) | payer OTHER ==
--- NOTE | 2024-03-24 11:51 | ED ---
ENT HPI - General Chief complaint: ENT Stated complaint: Jaw Pain Time Seen by Provider: 03/24/24 11:48 Source: patient, RN notes reviewed Mode of arrival: ambulatory Limitations: no limitations - History of Present Illness Initial comments: 63-year-old male presented to the ER with a chief complaint of jaw pain. Patient reports yesterday he was working in his garage and was standing on a rolling cart. He states he lost his balance and fell hitting the left side of his jaw on the handle. He denies loss of consciousness or blood thinner use. Since then his jaw has been sore and he has been unable to open his jaw all the way. He is concerned his jaw is dislocated. He denies any other injuries. Denies any dizziness, lightheadedness, chest pain or shortness of breath prior to fall. - Related Data Home Medications Medication Instructions Recorded Confirmed Multivitamins, Thera [Multivitamin 1 tab PO DAILY 11/02/18 11/02/18 (formulary)] Previous Rx's Medication Instructions Recorded Levofloxacin [Levaquin] 500 mg PO DAILY 7 Days #7 tab 11/05/18 metroNIDAZOLE [Flagyl] 500 mg PO TID 7 Days #21 tab 11/05/18 Allergies Allergy/AdvReac Type Severity Reaction Status Date / Time Penicillins Allergy Rash/Hives Verified 11/02/18 08:04 Review of Systems ROS Statement: Those systems with pertinent positive or pertinent negative responses have been documented in the HPI. ROS Other: All systems not noted in ROS Statement are negative. Past Medical History Past Medical History: GERD/Reflux Additional Past Medical History / Comment(s): gastric ulcers, ear implant =- no MRI's History of Any Multi-Drug Resistant Organisms: None Reported Past Surgical History: Orthopedic Surgery Past Psychological History: No Psychological Hx Reported Past Alcohol Use History: Occasional Past Drug Use History: None Reported - Past Family History Mother Family Medical History: Diabetes Mellitus Sister(s) Family Medical History: Diabetes Mellitus General Exam General appearance: alert, in no apparent distress Head exam: Present: atraumatic, normocephalic, normal inspection Eye exam: Present: normal appearance, PERRL, EOMI. Absent: scleral icterus, conjunctival injection, periorbital swelling ENT exam: Present: normal exam, normal oropharynx, mucous membranes moist, TM's normal bilaterally (Left ear implant. ), other (Patient is unable to fully open mouth) Neck exam: Present: normal inspection. Absent: tenderness, meningismus, lymphadenopathy Respiratory exam: Present: normal lung sounds bilaterally. Absent: respiratory distress, wheezes, rales, rhonchi, stridor Cardiovascular Exam: Present: regular rate, normal rhythm, normal heart sounds. Absent: systolic murmur, diastolic murmur, rubs, gallop, clicks Neurological exam: Present: alert, oriented X3, CN II-XII intact Skin exam: Present: warm, dry, intact, normal color. Absent: rash Course Vital Signs 03/24/24 03/24/24 11:01 12:36 Temperature 97.5 F L 98.0 F Pulse Rate 63 72 Respiratory 16 18 Rate Blood Pressure 148/91 142/89 O2 Sat by Pulse 97 98 Oximetry Medical Decision Making - Medical Decision Making Was pt. sent in by a medical professional or institution (, PA, CULINARY ART TEACHER, urgent care, hospital, or custodial...) When possible be specific @ -No Did you speak to anyone other than the patient for history (EMS, parent, family, police, friend...)? What history was obtained from this source @ -No Did you review nursing and triage notes (agree or disagree)? Why? @ -I reviewed and agree with nursing and triage notes Were old charts reviewed (outside hosp., previous admission, EMS record, old EKG, old radiological studies, urgent care reports/EKG's, custodial records)? Report findings @ -No old charts were reviewed Differential Diagnosis (chest pain, altered mental status, abdominal pain women, abdominal pain men, vaginal bleeding, weakness, fever, dyspnea, syncope, headache, dizziness, GI bleed, back pain, seizure, CVA, palpatations, mental health, musculoskeletal)? @ -Differential Musculoskeletal: Muscular strain, contusion, ligament sprain, fracture, arthritis, septic arthritis, bursitis, cellulitis, muscle spasm, nerve compression, DVT, arterial occlusion, herpes zoster, electrolyte abnormality, tumor.... This is not meant to be in all inclusive list EKG interpreted by me (3pts min.). @ -None X-rays interpreted by me (1pt min.). @ -Mandible x-ray interpreted by me negative for acute process. CT interpreted by me (1pt min.). @ -None done U/S interpreted by me (1pt. min.). @ -None done What testing was considered but not performed or refused? (CT, X-rays, U/S, labs)? Why? @ -None What meds were considered but not given or refused? Why? @ -Patient refused analgesic medication. Did you discuss the management of the patient with other professionals (professionals i.e. Dr., PA, CULINARY ART TEACHER, lab, RT, psych nurse, social work supervisor, brake operator sheet metal, teacher, licensed loan officer assistant, briefcase sewer)? Give summary @ -No Was smoking cessation discussed for >3mins.? @ -No Was critical care preformed (if so, how long)? @ -No Were there social determinants of health that impacted care today? How? (Homelessness, low income, unemployed, alcoholism, drug addiction, transportation, low edu. Level, literacy, decrease access to med. care, fci, rehab)? @ -No Was there de-escalation of care discussed even if they declined (Discuss DNR or withdrawal of care, Hospice)? DNR status @ -No What co-morbidities impacted this encounter? (DM, HTN, Smoking, COPD, CAD, Cancer, CVA, ARF, Chemo, Hep., AIDS, mental health diagnosis, sleep apnea, morbid obesity)? @ -None Was patient admitted / discharged? Hospital course, mention meds given and route, prescriptions, significant lab abnormalities, going to OR and other pertinent info. @ -Discharge. 63-year-old male presented to the ER with a chief complaint of jaw pain after injury. History and physical exam completed. Vitals stable. Patient in no signs of acute distress and resting comfortably in exam room. No focal tenderness or step-offs to TMJ. Patient is able to fully close mouth but he is unable to open mouth fully. X-rays obtained negative for acute process. Results discussed with patient, all questions answered. Advised close follow-up with PCP. Return parameters discussed. Patient discharged stable condition. Patient verbally expressed understanding and agreement with care plan. Case discussed with ED attending, Dr. Man. Undiagnosed new problem with uncertain prognosis? @ -No Drug Therapy requiring intensive monitoring for toxicity (Heparin, Nitro, Insulin, Cardizem)? @ -No Were any procedures done? @ -No Diagnosis/symptom? @ -Jaw sprain Acute, or Chronic, or Acute on Chronic? @ -Acute Uncomplicated (without systemic symptoms) or Complicated (systemic symptoms)? @ -Uncomplicated Side effects of treatment? @ -No Exacerbation, Progression, or Severe Exacerbation? @ -No Poses a threat to life or bodily function? How? (Chest pain, [place], NC, pneumonia, PE, COPD, DKA, ARF, appy, cholecystitis, CVA, Diverticulitis, Homicidal, Suicidal, threat to staff... and all critical care pts) @ -No - Radiology Data Radiology results: report reviewed, image reviewed Disposition Clinical Impression: Jaw sprain Disposition: HOME SELF-CARE Condition: Stable Instructions (If sedation given, give patient instructions): Temporomandibular Disorder (ED) Additional Instructions: Please follow-up with PCP if symptoms persist. Return to the ER for any new or worsening concerns. Is patient prescribed a controlled substance at d/c from ED?: No Referrals: None,Stated [Primary Care Provider] - 1-2 days Forms: Area PCPs Time of Disposition: 12:27
--- NOTE | 2024-03-24 12:03 | XR ---
EXAMINATION TYPE: XR mandible complete DATE OF EXAM: 03/24/2024 COMPARISON: None HISTORY: Inability to open mouth TECHNIQUE: 5 view mandible FINDINGS: No acute displaced fracture is identified. Temporomandibular junctions appear intact. Angle of the jaw and mandible apex appears intact. Follow-up can be performed as clinically indicated. Add itional evaluation is required, CT could be performed. IMPRESSION: 1. No acute osseous abnormality 5 view mandible.
[2024-03-24 13:21] VITALS: BP 142/89; PULSE 72; RESP 18; TEMP 98
== END 2024-03-24 12:39 | disposition home or self-care (01) ==
LOC: EC 10:53
DX: S03.40XA Sprain of jaw, unspecified side, initial encounter (principal); Z88.0 Allergy status to penicillin; W18.09XA Striking against other object with subsequent fall, initial encounter
CPT/HCPCS: 70110; 99283